=== PATIENT | male | born 1950 | race Caucasian/White ===

== ENCOUNTER → 2016-09-13 | Outpatient (CLI) | payer MEDICARE ==
[~2016-09-13] MED LIST: ASPIRIN CHILDRE81 M1 PO; BYETTA250 MCG/ML SC; FLEXERIL10 MG PO; METFORMIN500 MG PO; MULTIVITAMIN1 TA2 PO; [UNRECOGNIZED DRUG - OTHER] PO; [UNRECOGNIZED DRUG - REMARK] PO
[2016-09-13 10:41] LABS: BUN 18 mg/dL (7-18)
[2016-09-13 11:00] LABS: GFR (ESTIMATED) 61 ML/MIN (>60)
[2016-09-14 05:41] LABS: Creatinine, Urine 108.8 mg/dL (Not Estab.)
== END ==
LOC: LAB 08:15
PROVIDERS: Internal Medicine Endocrinology, Diabetes & Metabolism
DX: M79.673 Pain in unspecified foot (principal); E11.9 Type 2 diabetes mellitus without complications; E78.1 Pure hyperglyceridemia; I10 Essential (primary) hypertension; E66.9 Obesity, unspecified

== ENCOUNTER 2016-11-18 16:44 | Emergency (ER) | payer MEDICARE ==
[~2016-11-18] VITALS: Ht 180.3 cm; Wt 122.5 kg
--- NOTE | 2016-11-18 17:08 | Emergency Room Report ---
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 Clinical Suspician of Infection? Mental Status: Sepsis Risk: Have you (or family members/close friends) recently traveled outside the [place]? If Yes, where/when: Have you had exposure to infectious disease within the past month? TB? Other? Specify: 66 years old white male status post knee replacement at [facility] BY DR. POLO CASTANEDA ONE WEEK AGO. The RIGHT LEG has been swollen since surgery. He went to rehabilitation and he was told that he will not get rehab until he gets a negative ultrasound for DVT. He was sent an ultrasound. Source patient, RN notes reviewed, family Exam Limitations no limitations ALLERGIES Coded Allergies: No Known Allergies (08/01/15) Home Medications Active Scripts Cyclobenzaprine Hcl (Flexeril) 10 MG PO TID #20 TAB Prov: 08/06/16 Reported Medications Metformin HCL (Metformin) 1 TAB PO BID [CHOLSETEROL] 1 TAB PO DAILY Exenatide (Byetta 5MCG dose) 1 MCG SC BID Aspirin 1 TAB PO DAILY Thiamine (B1-500) 1 TAB PO DAILY Multivitamin3 (Multivitamin) 1 TAB PO DAILY History Medical History General CAD? No Angina: No HI: No Hypertension? Yes Hyperlipidemia? Yes CHF? No DVT? No PE? No COPD? No Asthma? No Anemia? No GERD? No Gastric ulcers? No GI Bleed? No Hernia? No Thyroid Problems? No Hypothyroidism? No CVA? No Seizures? No Diabetes? Yes Insulin Dependent: No Insulin Pump: No Home FSBS? Yes Renal Insuffiency? No End Stage Renal Disease? No UTI? No Stones? No BPH? No GB Disease: No Nephritic Syndrome? No Asplenia? No Hepatitis? No Sickle Cell Disease? No Arthritis? No Migraines? No Cataracts? No Glaucoma? No MRSA? No HIV? No TB? No Anxiety? No Depression? No Cancer? Yes Site: SKIN RIGHT ARM More? No Immunization Hx DT/Tetanus 5-10 Years Ago Flu 2014-FSN Pneumonia Received In Past Surgical Hx Previous Surgery?Y LT SHOULDER ROTATOR APPY. CIRCUMCISION RIGHT KNEE ARTHROSCOPY RT SHOULDER ROTATOR TRIGGER FINGER RELEASED Family History Family Hx Diabetes Yes CAD Yes Hypertension Yes Hyperlipidemia No Cancer No TB Yes Social History Alcohol Alcohol: No Review of Systems All Other Systems Reviewed and Negative Constitutional no symptoms reported Eyes no symptoms reported ENT no symptoms reported. Respiratory no symptoms reported Cardiovascular no symptoms reported Gastrointestinal no symptoms reported Genitourinary no symptoms reported. Musculoskeletal see HPI, joint swelling Skin no symptoms reported Psychiatric/Neurological no symptoms reported Physical Exam Vital Signs Vital Signs Date Time Temp Pulse Resp B/P Pulse O2 O2 Flow FiO2 Ox Delivery Rate 11/18 1707 98.4 71 16 136/73 98 - WBC >12,000 or <4,000 or 10% bands? 2 or more SIRS Criteria Met? B/P: MAP: Creatinine >2.0? UA output<0.5ml/kg/hr for 2 hrs? Platelet count >100,000? Lactate >2.0mmol/1? INR >1.2 or PTT > than 60 sec? Evidence of Organ Dysfunction? Provider documented clinical suspician of infection? Sepsis Criteria Count: Sepsis Risk: General Appearance normal appearance, WD/WN Eye Exam - bilateral eye normal exam, bilateral eye PERRL, bilateral eye EOMI Ear, Nose, Throat hearing grossly normal, normal ENT inspection Neck normal inspection, non-tender, supple, full range of motion Respiratory Status Yes: trachea midline, chest symmetrical, non tender chest. No: respiratory distress. Lung Sounds bilateral: normal breath sounds, lungs clear. Cardiovascular normal exam, regular rate/rhythm, no peripheral edema, no gallop, no JVD, no murmur, no rub, normal peripheral pulses Peripheral Pulses Pulses normal Yes Peripheral Pulses 3+ dorsalis pedis (R), 3+ dorsalis pedis (L) Gastrointestinal normal bowel sounds, normal exam, non tender, soft, no organomegaly Extremities HEALING INCISION OVER THE right KNEE FROM A right KNEE REPLACEMENT SURGERY. tHERE IS A 2+ EDEMA OF THE LEG AND DORSAL FOOT. dORSALIS PEDIS IS STRONG AND PALPABLE. LARGE ECCHYMOSIS ON THE POPLITEAL FOSSA. Neurologic alert, process engineering intern II-XII nml as tested, normal exam, oriented x 3 Skin intact, normal color, warm/dry, LARGE ECCHYMOSIS ON THE RIGHT POPLITEAL FOSSA Medical Decision Making LABS/Meds/Orders Pt receiving controlled substance in ED? No Results/Orders Orders Procedure Date/time Status VENOUS LOWER EXT RT 11/18 UNK Active Departure Departure Time of Disposition 175 Disposition DC Home or Self Care(routine) Clinical Impression Primary Impression: Leg edema, right Secondary Impressions: Inguinal lymphadenopathy Condition STABLE Referrals POLO MCLAUGHLIN MD,RDarrius Sanchez (Family) Additional Instructions 1- THE PATIENT WAS ADVISED FOR RIGHT LEG ELEVATION. 2- CHECK WITH DR STOUT TOMORROW REGARDING INGUINAL LN 3- CONTINUE REHAB AND FOLLOW UP WITH DR MCLAUGHLIN SCHEDULED NEXT WEEK. 4- OBSERVE FOR FEVER, REDNESS, SOA OR CHEST PAIN TO RETURN IF NEEDED. Discharge Counseling Counseled pt/family regarding diagnosis, test results, medications/RX, home care, follow up needs ED Critical Care Critical Care No If Critical Care minutes are documented, the time involved in the performance of seperately reportable procedures was not counted toward critical care time documented. I directly delivered medical care to this critically ill and/or injured patient. Timely evaluation and treatment was necessary to address the significant organ system(s) dysfunction present in this patient. at 1753
--- NOTE | 2016-11-18 18:05 | CARDIOVASCULAR REPORT ---
"Venous Exam Indications: 729.81 Swelling of limb. IMPRESSIONS No evidence of deep or superficial vein thrombosis involving the right lower extremity History: Right lower extremity pain. Swelling of the right lower extremity. Risk factors: Hypertension. Obese. Labs, prior tests, procedures, and surgery: Right knee joint prosthesis. Patient had a total right knee replacement 11/11/16. Physical therapist noted extensive swelling in thigh and calf area today. Patient states he took 81 mg ASA daily prior to surgery. He was told after surgery to increase to 325 mg ASA daily for 30 days. Edema has progressively gotten worse in the week since surgery. Labs, prior tests, procedures, and surgery: Right knee joint prosthesis. Patient had a total right knee replacement 11/11/16. Physical therapist noted extensive swelling in thigh and calf area today. Patient states he took 81 mg ASA daily prior to surgery. He was told after surgery to increase to 325 mg ASA daily for 30 days. Edema has progressively gotten worse in the week since surgery. Right lower extremity venous duplex evaluation. Doppler flow study including spectral analysis, color and orozco scale imaging. Location: Bedside. Patient status: Emergency department. CRITICAL FINDINGS - Reported to: Dr. Rangel - Read back and verified. - 11/18/16 - 17:45 - RLE negative for DVT or SVT Incidental findings: Aslightlyenlargedlymph nodeis noted incidentally on the right. Tables: Venous flow and imaging: + + + + + |Location |Overall |Flow properties |Comments | + + + + + |Right common femoral|Patent |Normal phasicity; | | | | |spontaneous; normal| | | | |augmentation; | | | | |compressible | | + + + + + |Right saphenofemoral|Patent |Compressible | | |junction | | | | + + + + + |Right profunda |Patent |Compressible | | |femoral | | | | + + + + + |Right femoral |Patent |Normal phasicity; | | | | |spontaneous; normal| | | | |augmentation; | | | | |compressible | | + + + + + |Right greater |Patent |Normal phasicity; | | |saphenous | |spontaneous; normal| | | | |augmentation; | | | | |compressible | | + + + + + |Right popliteal |Patent |Normal phasicity; | | | | |spontaneous; normal| | | | |augmentation; | | | | |compressible | | + + + + + |Right posterior |Difficult study|Compressible |moderate edema| |tibial | | | | + + + + + |Right peroneal |Difficult study|Compressible |moderate edema| + + + + + |Right gastrocnemius |Patent |Compressible | | + + + + + |Right soleal |Patent |Compressible | | + + + + + (Report amended ) Electronically signed by: Brendon Santiago [id number]"
[2016-11-18 18:06] VITALS: BP 136/73
--- OUTSIDE RECORDS SUMMARY | 2016-11-20 17:51 | External Medical Summary Rpt | CCD ---
Author Author , BRANDON Organization BRANDON Address Unknown Phone [email or web address] Purpose Continuity of Care Document - 08-02-2016 through 2016 Problems Code Diagnosis DOS Provider Status M17.11 Unilateral primary osteoarthri tis, right knee Z74.09 Other reduced mobility Results Labs Lab Lab Date Result Refere Interp Status Commen Order Detail nces retati t Range on Bas Metab 1999 Pnl SerPl (11-12-2016 06:51) Comment: Meter: [id number] Rock Crusher Operator: [id number] Osmani Garner Glucose 229 70-130 complet BldC 017 mg/dL ed Glucomt 06:51 r-mCnc Bas Metab 1999 Pnl SerPl (11-12-2016 06:04) Comment: National Kidney Foundation Guidelines Comment: Comment: Stage Description GFR Comment: 1 Normal or High 90+ Comment: 2 Mild decrease 60-89 Comment: 3 Moderate decrease 30-59 Comment: 4 Severe decrease 15-29 Comment: 5 Kidney failure <15 Anion 10.0 3.0-11. complet Gap3 017 mmol/L 0 ed SerPl-s 06:04 Cnc BUN/Cre 17.5 7.0-25. complet at 017 0 ed SerPl 06:04 GFR/BSA 61 >60 complet .pred 017 mL/min/ ed SerPl 06:04 1.73 MDRD-Ar VRat Calcium 8.5 8.7-10. complet 017 mg/dL 4 ed XXX-sCn 06:04 c CO2 23.0 20.0-31 complet SerPl-s 017 mmol/L .0 ed Cnc 06:04 Chlorid 101 99-109 complet e 017 mmol/L ed SerPl-s 06:04 Cnc Potassi 4.5 3.5-5.5 complet um 017 mmol/L ed Bld-sCn 06:04 c Sodium 134 132-146 complet Bld-sCn 017 mmol/L ed c 06:04 Creat 1.20 0.60-1. complet Bld-mCn 017 mg/dL 30 ed c 06:04 BUN 21 9-23 complet Bld-mCn 017 mg/dL ed c 06:04 Glucose 218 70-100 complet 017 mg/dL ed Bld-mCn 06:04 c CBC W Diff pnl,unspecified Bld (11-12-2016 06:04) Imm 11-12- 0.04 0.00-0. complet Granulo 017 10*3/mm 03 ed cytes # 06:04 3 Bld Basophi 0.01 0.00-0. complet ls # 017 10*3/mm 20 ed Bld 06:04 3 Auto Eosinop 0.00 0.00-0. complet hil # 017 10*3/mm 30 ed Bld 06:04 3 Auto Monocyt 0.96 0.00-1. complet es # 017 10*3/mm 00 ed Bld 06:04 3 Auto Lymphoc 1.26 0.60-4. complet ytes # 017 10*3/mm 80 ed Bld 06:04 3 Auto Neutrop 10.89 1.50-8. complet hils # 017 10*3/mm 30 ed Bld 06:04 3 Auto Imm 0.3 % 0.0-0.6 complet Granulo 017 ed cytes/l 06:04 euk NFr Bld Basophi 0.1 % 0.0-1.0 complet ls/leuk 017 ed NFr 06:04 Bld Auto Eosinop 0.0 % 0.0-3.0 complet hil/breana 017 ed k NFr 06:04 Bld Auto Monocyt 7.3 % 0.0-12. complet es/leuk 017 0 ed NFr 06:04 Bld Auto Lymphoc 9.6 % 24.0-44 complet ytes/le 017 .0 ed uk NFr 06:04 Bld Auto Neutrop 82.7 % 41.0-71 complet hils/le 017 .0 ed uk NFr 06:04 Bld Auto Platele 179 150-450 complet t # Bld 017 10*3/mm ed Auto 06:04 3 PMV Bld 10.3 fL 6.0-12. complet Auto 017 0 ed 06:04 RDW RBC 41.5 fl 37.0-54 complet Auto 017 .0 ed 06:04 RDW RBC 12.8 % 11.3-14 complet 017 .5 ed Auto-Rt 06:04 o MCHC 33.5 32.0-36 complet RBC 017 g/dL .0 ed Auto-mC 06:04 nc MCH RBC 29.7 pg 27.0-31 complet Qn 017 .0 ed Auto 06:04 MCV RBC 88.5 fL 80.0-99 complet Auto 017 .0 ed 06:04 Hct VFr 38.5 % 38.9-50 complet Bld 017 .9 ed Auto 06:04 Hgb 12.9 13.1-17 complet Bld-mCn 017 g/dL .5 ed c 06:04 RBC # 11-12-2 4.35 4.20-5. complet Bld 017 10*6/mm 76 ed Auto 06:04 3 WBC 13.16 3.50-10 complet nRBC 017 10*3/mm .80 ed cor # 06:04 3 Bld Bas Metab 1999 Pnl SerPl (11-11-2016 21:16) Comment: Meter: [id number] Rock Crusher Operator: [id number] VanBussum Patrick Glucose 246 70-130 complet BldC 017 mg/dL ed Glucomt 21:16 r-mCnc Bas Metab 1999 Pnl SerPl (11-11-2016 17:10) Comment: Meter: [id number] Rock Crusher Operator: [id number] Gatherwright Roney Glucose 289 70-130 complet BldC 017 mg/dL ed Glucomt 17:10 r-mCnc Bas Metab 1999 Pnl SerPl (11-11-2016 06:20) Comment: Meter: [id number] Rock Crusher Operator: [id number] Vinayak Ross Glucose 132 70-130 complet BldC 017 mg/dL ed Glucomt 06:20 r-mCnc Potassium Bld-sCnc (11-11-2016 06:08) Potassi 4.84 3.5-5.3 complet um 017 mmol/L ed BldA-sC 06:08 nc CBC (hemogram) Bld Auto (10-28-2016 12:57) WBC 7.77 3.50-10 complet nRBC 017 10*3/mm .80 ed cor # 12:57 3 Bld RBC # 4.75 4.20-5. complet Bld 017 10*6/mm 76 ed Auto 12:57 3 Hct VFr 42.3 % 38.9-50 complet Bld 017 .9 ed Auto 12:57 MCV RBC 89.1 fL 80.0-99 complet Auto 017 .0 ed 12:57 MCH RBC 30.7 pg 27.0-31 complet Qn 017 .0 ed Auto 12:57 MCHC 34.5 32.0-36 complet RBC 017 g/dL .0 ed Auto-mC 12:57 nc RDW RBC 13.2 % 11.3-14 complet 017 .5 ed Auto-Rt 12:57 o RDW RBC 43.2 fl 37.0-54 complet Auto 017 .0 ed 12:57 PMV Bld 9.6 fL 6.0-12. complet Auto 017 0 ed 12:57 Platele 179 150-450 complet t # Bld 017 10*3/mm ed Auto 12:57 3 Hgb 14.6 13.1-17 complet Bld-mCn 017 g/dL .5 ed c 12:57 Bas Metab 2000 Pnl SerPl (10-28-2016 12:57) Comment: National Kidney Foundation Guidelines Comment: Comment: Stage Description GFR Comment: 1 Normal or High 90+ Comment: 2 Mild decrease 60-89 Comment: 3 Moderate decrease 30-59 Comment: 4 Severe decrease 15-29 Comment: 5 Kidney failure <15 Glucose 118 70-100 complet 017 mg/dL ed Bld-mCn 12:57 c BUN 18 9-23 complet Bld-mCn 017 mg/dL ed c 12:57 Creat 1.20 0.60-1. complet Bld-mCn 017 mg/dL 30 ed c 12:57 Sodium 138 132-146 complet Bld-sCn 017 mmol/L ed c 12:57 Potassi 4.9 3.5-5.5 complet um 017 mmol/L ed Bld-sCn 12:57 c Chlorid 105 99-109 complet e 017 mmol/L ed SerPl-s 12:57 Cnc CO2 27.0 20.0-31 complet SerPl-s 017 mmol/L .0 ed Cnc 12:57 Calcium 9.3 8.7-10. complet 017 mg/dL 4 ed XXX-sCn 12:57 c GFR/BSA 61 >60 complet .pred 017 mL/min/ ed SerPl 12:57 1.73 MDRD-Ar VRat BUN/Cre 15.0 7.0-25. complet at 017 0 ed SerPl 12:57 Anion 6.0 3.0-11. complet Gap3 017 mmol/L 0 ed SerPl-s 12:57 Cnc Hgb A1c Bld (10-28-2016 12:57) Comment: The [place] [employer] recommends maintenance of Hemoglobin A1C at 7.0% or lower. Goals for Hemoglobin A1C reduction may need to be modified if hypoglycemia is a problem. Hgb A1c 7.20 % 4.80-5. complet MFr 017 60 ed Bld 12:57 Hemoglobin A1c in Blood (09-13-2016 08:15) Hemoglo 7.0 % 0.0% Normal complet bin A1c 017 - ed in 08:15 7.0% Blood
--- OUTSIDE RECORDS SUMMARY | 2016-11-20 17:51 | External Medical Summary Rpt | CCD ---
Author Author , BRANDON Organization BRANDON Address Unknown Phone [email or web address] Purpose Continuity of Care Document - 08-02-2016 through 2016 Problems Code Diagnosis DOS Provider Status M17.11 Unilateral primary osteoarthri tis, right knee Z74.09 Other reduced mobility Results Labs Lab Lab Date Result Refere Interp Status Commen Order Detail nces retati t Range on Bas Metab 1999 Pnl SerPl (11-12-2016 06:51) Comment: Meter: [id number] Accounting Professional: [id number] Osmani Garner Glucose 229 70-130 complet BldC [...] 1999 Pnl SerPl (11-11-2016 21:16) Comment: Meter: [id number] Accounting Professional: [id number] VanBussum Patrick Glucose 246 70-130 complet BldC 017 mg/dL ed Glucomt 21:16 r-mCnc Bas Metab 1999 Pnl SerPl (11-11-2016 17:10) Comment: Meter: [id number] Accounting Professional: [id number] Gatherwright Roney Glucose 289 70-130 complet BldC 017 mg/dL ed Glucomt 17:10 r-mCnc Bas Metab 1999 Pnl SerPl (11-11-2016 06:20) Comment: Meter: [id number] Accounting Professional: [id number] Vinayak Ross Glucose 132 70-130 complet BldC [...] Hgb A1c Bld (10-28-2016 12:57) Comment: The [place] [employer] recommends maintenance of Hemoglobin A1C [...]
--- OUTSIDE RECORDS SUMMARY | 2016-11-20 17:52 | External Medical Summary Rpt | CCD ---
Author Author , BRANDON TAYLOR Address Unknown Phone [email or web address] Immunization Name Date Rout CVX Reac Dose Comm Prov Is Faci e tion ent ider Refu lity Give sed n PCV1 05-0 Intr 133 0.5 Hist D049 No D049 3 2-20 amus mL oric 01 01 17 cula al r Info rmat ion - Sour ce Unsp ecif ied Tdap 05-0 Intr 115 0.5 Hist D049 No D049 , 2-20 amus mL oric 01 01 Adso 17 cula al rbed r Info rmat ion - Sour ce Unsp ecif ied
--- OUTSIDE RECORDS SUMMARY | 2016-11-20 17:52 | External Medical Summary Rpt ---
Author Author BR[employer]ON [employer], [employer] Organization [employer] Address Unknown Phone Unavailable Results Microalb/Creat Ratio, Randm Ur Observa Value Referen Units Interpr Notes Date tion ce etation Range Microalbu Not ug/mL No No Sep 13 min Estab. informati informati 2016 8:15 [Mass/vol on in on in AM ume] in source source Urine data data Albumin/C 0.0 - No High INFCE Sep 13 reatinine 30.0 informati Result 2017 8:15 [Mass on in Units: AM ratio] in source mg/g Urine data creatPerf ormed at: - [facility] [place] [address] [address] [place], [place] [id number] Leather Grader: Rohith Bell PhD, Phone: [phone] Creatinin Not mg/dL No No Sep 13 e Estab. informati informati 2016 8:15 [Mass/vol on in on in AM ume] in source source Urine data data Basic metabolic panel in Blood Observa Value Referen Units Interpr Notes Date tion ce etation Range Urea 7 - 18 mg/dL Normal No Sep 13 nitrogen informati 2016 8:15 [Mass/vol on in AM ume] in source Serum or data Plasma Calcium 8.5 - mg/dL Normal No Sep 13 [Mass/vol 10.1 informati 2016 8:15 ume] in on in AM Serum or source Plasma data Chloride 98 - 107 mmoL/L Normal No Sep 13 [Moles/vo informati 2016 8:15 lume] in on in AM Serum or source Plasma data Carbon 21.0 - mmoL/L Normal No Sep 13 dioxide, 32.0 informati 2016 8:15 total on in AM [Moles/vo source lume] in data Serum or Plasma Creatinin 0.70 - mg/dL Normal No Sep 13 e 1.30 informati 2016 8:15 [Mass/vol on in AM ume] in source Serum or data Plasma Estimated >60 ML/MIN No REFERENCE Sep 13 informati RANGE: 2017 8:15 glomerula on in >60 AM r source ML/MIN/1. filtratio data 73 SQUARE n rate METERSIf (GF this patient is -A merican, then multiply theresult by 1.210. Glucose 74 - 106 mg/dL High No Sep 13 [Mass/vol informati 2016 8:15 ume] in on in AM Serum or source Plasma data Potassium 3.5 - 5.1 mmoL/L Normal No Sep 13 informati 2016 8:15 [Moles/vo on in AM lume] in source Serum or data Plasma Sodium 136 - 145 mmoL/L Normal No Sep 13 [Moles/vo informati 2016 8:15 lume] in on in AM Serum or source Plasma data Lipid 1996 panel in Serum or Plasma Observa Value Referen Units Interpr Notes Date tion ce etation Range Cholester < 200 mg/dL High No Sep 13 ol informati 2016 8:15 [Moles/vo on in AM lume] in source Unspecifi data ed specimen Cholester 40 - 60 MG/DL Normal No Sep 13 ol in HDL informati 2016 8:15 on in AM [Mass/vol source ume] in data Serum or Plasma Cholester 0 - 130 mg/dL Normal No Sep 13 ol in LDL informati 2016 8:15 on in AM [Mass/vol source ume] in data Serum or Plasma by calculati on Triglycer 30 - 200 mg/dL Normal No Sep 13 brady informati 2016 8:15 [Moles/vo on in AM lume] in source Serum or data Plasma Cholester 0 - 40 No Normal No Sep 13 ol in informati informati 2016 8:15 VLDL on in on in AM [Mass/vol source source ume] in data data Serum or Plasma Aspartate aminotransferase [Enzymatic activity/volume] in Serum or Plasma Observa Value Referen Units Interpr Notes Date tion ce etation Range Aspartate 15 - 37 U/L Normal No Sep 13 informati 2016 8:15 aminotran on in AM sferase source [Enzymati data c activity/ volume] in Serum or Plasma Alanine aminotransferase [Enzymatic activity/volume] in Serum or Plasma Observa Value Referen Units Interpr Notes Date tion ce etation Range Alanine 12 - 78 U/L Normal No Sep 13 aminotran informati 2016 8:15 sferase on in AM [Enzymati source c data activity/ volume] in Serum or Plasma Thyrotropin [Units/volume] in Serum or Plasma Observa Value Referen Units Interpr Notes Date ti ce etation Range Thyrotrop 0.358 - uIU/ml No No Sep 13 in 3.740 informati informati 2016 8:15 [Units/vo on in on in AM lume] in source source Serum or data data Plasma Hemoglobin A1c in Blood Observa Value Referen Units Interpr Notes Date ti ce etation Range Hemoglo 7.0 0.0 - % Normal < 6% Sep 13 bin A1c 7.0 NON-DAVIAN 2017 in [facility] 8:15 AM Blood LEVEL< 7% CONTROL LED DIABETI C LEVEL> 8% POORLY CONTROL LED DIABETI C LEVEL Glucose [Mass/volume] in Capillary blood by Glucometer Observa Value Referen Units Interpr Notes Date ti ce etation Range Glucose 70 - 110 mg/dl Normal No Aug 02 [Mass/vol informati 2017 9:36 ume] in on in AM Capillary source blood by data Glucomete r
--- OUTSIDE RECORDS SUMMARY | 2016-11-20 17:52 | External Medical Summary Rpt ---
[...] Urine data creatPerf ormed at: - [facility] [address] [address] [address] [place], [place] [id number] Manager Shop: Rohith Bell PhD, Phone: [phone] Creatinin Not mg/dL No No Sep [...] 13 bin A1c 7.0 NON-DAVIAN 2017 in [facility] 8:15 AM Blood LEVEL< 7% [...]
--- OUTSIDE RECORDS SUMMARY | 2016-11-20 17:52 | External Medical Summary Rpt | CCD ---
Author Author , BRANDON TAYLOR Address Unknown Phone [email or web address] Immunization Name Date Rout CVX Reac Dose [...]
== END 2016-11-18 18:06 | disposition home or self-care (01) ==
LOC: ER 16:44
DX: R60.0 Localized edema (principal); R59.0 Localized enlarged lymph nodes; I10 Essential (primary) hypertension; Z79.82 Long term (current) use of aspirin